=== PATIENT | female | born 1965 | race Caucasian/White ===

== ENCOUNTER → 2016-12-11 | Outpatient (CLI) | payer OTHER ==
--- NOTE | 2016-12-11 07:46 | MR ---
EXAMINATION TYPE: MR knee LT wo con DATE OF EXAM: 12/11/2016 COMPARISON: NONE HISTORY: Left knee pain and swelling per order, symptoms present since July per patient TECHNIQUE: Multiplanar, multisequence images of the knee is performed without IV contrast. FINDINGS: MEDIAL MENISCUS: Anterior horn is intact without tear. There is triangular shaped increased signal po sterior horn of medial meniscus with slight irregularity but no definitive extension to articular mariella face. LATERAL MENISCUS: There is globular increased signal anterior horn of lateral meniscus, this appears to extend to superior articular surface on parasagittal image 10. There is less prominent globular in creased central signal posterior horn of lateral meniscus. CRUCIATE LIGAMENTS: The anterior and posterior cruciate ligaments are intact and unremarkable. COLLATERAL LIGAMENTS: The medial collateral ligament and lateral collateral ligament complex are inta ct. Mild to moderate increased fluid signal surrounds medial collateral ligament. EXTENSOR MECHANISM: Visualized quadriceps and patellar tendons are intact. EFFUSION: There is large suprapatellar joint effusion. POPLITEAL CYST: There is a moderate size popliteal/medina cyst measuring roughly 4 cm on long axis on sagittal image 23. TRICOMPARTMENT SPACES: There is mild tricompartment joint space loss with slightly more prominent mil d to moderate joint space loss patellofemoral compartment. There is mild to borderline moderate spurr ing medial and lateral tibiofemoral compartments. CARTILAGE: There is thinning of articular cartilage posterior patellar pole with near full-thickness loss seen on sagittal image 13 mid pole level consistent with chondromalacia patella. Fissuring of ar ticular cartilage medial tibiofemoral compartment is appreciated on sagittal image 22 with near full- thickness loss seen. BONE MARROW SIGNAL: No focal abnormal marrow signal is appreciated. OTHER: No additional significant abnormality is appreciated. IMPRESSION: 1. Large suprapatellar joint effusion easily accessible for diagnostic and/or therapeutic analysis gi zuleima patient's history. 2. Full-thickness tearing anterior horn of lateral meniscus. 3. Intrasubstance tears posterior horn of lateral meniscus and posterior horn of medial meniscus. 4. Small to moderate-sized popliteal cyst. 5. Mild to moderate tricompartment degenerative changes as detailed above. Consider orthopedic referral.
== END | disposition home or self-care (01) ==
LOC: RADMRIMAIN 05:51
PROVIDERS: ATTEND Family Medicine
DX: S83.282A Other tear of lateral meniscus, current injury, left knee, initial encounter (principal); S83.242A Other tear of medial meniscus, current injury, left knee, initial encounter; M71.22 Synovial cyst of popliteal space [Baker], left knee; M25.862 Other specified joint disorders, left knee; M25.462 Effusion, left knee